=== PATIENT | female | born 1935 | race Caucasian/White ===

== ENCOUNTER 2024-07-09 11:44 | Emergency (ER) | payer MEDICARE, BC | END 2024-07-09 13:36 | disposition home or self-care (01) | LOC: LB.ED 11:44 | DX: S39.92XA Unspecified injury of lower back, initial encounter (principal); I10 Essential (primary) hypertension; Z79.899 Other long term (current) drug therapy; W19.XXXA Unspecified fall, initial encounter | CPT/HCPCS: 72220; 99283 ==